=== PATIENT | male | born 1940 | race Caucasian/White ===

== ENCOUNTER 2021-01-24 17:01 | Emergency (ER) | payer MEDICARE, BC ==
--- NOTE | 2021-01-24 19:31 | EDM.PDOC ---
ED HPI GENERAL MEDICAL PROBLEM - General Chief Complaint: Skin Complaint Stated Complaint: INFECTION Time Seen by Provider: 01/24/21 18:48 Source of Information: Reports: Patient, Family History Limitations: Reports: No Limitations - History of Present Illness INITIAL COMMENTS - FREE TEXT/NARRATIVE: 80 yo [place] 4 [place]. yesterday skin surrounding the wound became fire engine red and pain increased. He does have base line very edematous lower extremities. He is diabetic. He does take ceftin daily. He is afebrile and generally feeling well - Related Data Allergies Allergy/AdvReac Type Severity Reaction Status Date / Time erythromycin base Allergy Other Verified 01/24/21 18:43 [From Staticin] ethyl alcohol [From Staticin] Allergy Other Verified 01/24/21 18:43 Home Meds: Home Meds Alfuzosin [Uroxatral] 10 mg PO BID 01/24/21 [History] Cefuroxime [Ceftin] 500 mg PO BID 01/24/21 [History] Ezetimibe [Zetia] 10 mg PO DAILY 01/24/21 [History] Furosemide [Lasix] 20 mg PO BID 01/24/21 [History] Insulin Isophane NPH, Human [HumuLIN N] 50 units SQ BID 01/24/21 [History] Nebivolol [Bystolic] 5 mg PO DAILY 01/24/21 [History] Past Medical History HEENT History: Reports: Impaired Vision Cardiovascular History: Reports: High Cholesterol Musculoskeletal History: Reports: Osteoarthritis Psychiatric History: Reports: Anxiety, PTSD Endocrine/Metabolic History: Reports: Diabetes, Type II, Obesity/BMI 30+ - Past Surgical History Head Surgeries/Procedures: Reports: None HEENT Surgical History: Reports: Cataract Surgery Cardiovascular Surgical History: Reports: None Respiratory Surgical History: Reports: None Endocrine Surgical History: Reports: None Musculoskeletal Surgical History: Reports: Other (See Below) Dermatological Surgical History: Reports: None Social & Family History - Tobacco Use Tobacco Use Status *Q: Never Tobacco User Second Hand Smoke Exposure: No - Caffeine Use Caffeine Use: Reports: Soda - Recreational Drug Use Recreational Drug Use: No ED ROS GENERAL - Review of Systems Review Of Systems: See Below Constitutional: Denies: Fever, Chills, Fatigue Respiratory: Denies: Shortness of Breath, Wheezing Cardiovascular: Reports: Edema. Denies: Chest Pain GI/Abdominal: Denies: Abdominal Pain Skin: Reports: Wound ED EXAM, SKIN/RASH Exam: See Below Exam Limited By: No Limitations General Appearance: Alert, WD/WN, No Apparent Distress Respiratory/Chest: No Respiratory Distress, Lungs Clear Cardiovascular: Other (1+ pitting edema lower extremities) Skin: Other (abrasion to mann of right leg 20 cm crusted surrounding erythema and edema, very tender to light palpation) Course - Vital Signs Last Recorded V/S: Last Vital Signs Temp 36.5 C 01/24/21 18:50 Pulse 81 01/24/21 18:50 Resp 16 01/24/21 18:50 BP 167/78 H 01/24/21 18:50 Pulse Ox 96 01/24/21 18:50 Departure - Departure Time of Disposition: 19:28 Disposition: Home, Self-Care 01 Condition: Good Clinical Impression: Peripheral edema Cellulitis Qualifiers: Site of cellulitis: extremity Site of cellulitis of extremity: lower extremity Laterality: right Qualified Code(s): L03.115 - Cellulitis of right lower limb - Discharge Information *PRESCRIPTION DRUG MONITORING PROGRAM REVIEWED*: Not Applicable *COPY OF PRESCRIPTION DRUG MONITORING REPORT IN PATIENT MICK: Not Applicable Instructions: Cellulitis, Adult Referrals: PCP,None [Primary Care Provider] - Forms: ED Department Discharge Additional Instructions: BActrim DS twice daily for 10 days Lasix as directed wash with warm soapy water and pat dry no need to soak as this may be creating more inflammation Sepsis Event Note (ED) - Evaluation Sepsis Screening Result: No Definite Risk - Focused Exam Vital Signs: Vital Signs Temp Pulse Resp BP Pulse Ox 01/24/21 18:50 36.5 C 81 16 167/78 H 96 01/24/21 18:38 36.5 C 81 16 167/78 H 96
== END 2021-01-24 19:41 | disposition home or self-care (01) ==
LOC: JP.ED 17:01
DX: L03.115 Cellulitis of right lower limb (principal); R60.0 Localized edema; E11.9 Type 2 diabetes mellitus without complications; E66.9 Obesity, unspecified; Z68.43 Body mass index [BMI] 50.0-59.9, adult; Z88.1 Allergy status to other antibiotic agents; Z91.048 Other nonmedicinal substance allergy status; Z79.899 Other long term (current) drug therapy; Z79.4 Long term (current) use of insulin
CPT/HCPCS: 99283

== ENCOUNTER 2021-06-15 17:40 | Emergency (ER) | payer MEDICARE, BC ==
[2021-06-15] MEDS ORDERED: HYDROmorphone 1 MG/ML Syringe IM ONE (18:29)
--- NOTE | 2021-06-15 18:31 | EDM.PDOC ---
ED HPI GENERAL MEDICAL PROBLEM - General Chief Complaint: Back Pain or Injury Stated Complaint: LOWER BACK PAIN Time Seen by Provider: 06/15/21 18:25 Source of Information: Reports: Patient, Family, RN Notes Reviewed History Limitations: Reports: No Limitations - History of Present Illness INITIAL COMMENTS - FREE TEXT/NARRATIVE: 81-year-old gentleman presents emergency department day complaint of low back pain, he does have a history of chronic back pain for which she takes oxycodone. However he is unsure what happened he just got out of the car sudden onset of back pain on the left side with pain shooting down into his left leg. The OxyContin does not provide any relief. No fevers no loss of bowel or bladder Left Lower Back Pain Score (Numeric/FACES): 9 - Related Data Allergies Allergy/AdvReac Type Severity Reaction Status Date / Time cyclobenzaprine Allergy Other Verified 06/15/21 18:09 [From Flexeril] erythromycin base Allergy Other Verified 06/15/21 18:08 [From Staticin] ethyl alcohol [From Staticin] Allergy Other Verified 06/15/21 18:08 Home Meds: Home Meds Alfuzosin [Uroxatral] 10 mg PO BID 01/24/21 [History] Cefuroxime [Ceftin] 500 mg PO BID 01/24/21 [History] Ezetimibe [Zetia] 10 mg PO DAILY 01/24/21 [History] Furosemide [Lasix] 40 mg PO BID 01/24/21 [History] Insulin Isophane NPH, Human [HumuLIN N] 50 units SQ BID 01/24/21 [History] Nebivolol [Bystolic] 5 mg PO DAILY 01/24/21 [History] Aspirin [Halfprin] 81 mg PO DAILY 06/15/21 [History] Insulin Glulisine [Apidra Solostar] 25 unit SQ TID 06/15/21 [History] Lactobacillus Acidophilus [Probiotic] 1 each PO BID 06/15/21 [History] Minocycline [Minocin] 100 mg PO BID 06/15/21 [History] PARoxetine [Paxil] 20 mg PO DAILY 06/15/21 [History] Pantoprazole [ProTONIX] 40 mg PO DAILY 06/15/21 [History] allopurinoL [Zyloprim] 300 mg PO DAILY 06/15/21 [History] oxyCODONE 10 mg PO Q4HR 06/15/21 [History] Past Medical History HEENT History: Reports: Impaired Vision Cardiovascular History: Reports: High Cholesterol, Other (See Below) Other Cardiovascular History: rapid heart rate Respiratory History: Reports: Asthma Musculoskeletal History: Reports: Back Pain, Chronic, Osteoarthritis Psychiatric History: Reports: Anxiety, PTSD Endocrine/Metabolic History: Reports: Diabetes, Type II, Obesity/BMI 30+ Dermatologic History: Reports: Other (See Below) Other Dermatologic History: skin discoloration - Infectious Disease History Infectious Disease History: Reports: Chicken Pox, Influenza, Measles - Past Surgical History Head Surgeries/Procedures: Reports: None HEENT Surgical History: Reports: Cataract Surgery Cardiovascular Surgical History: Reports: None Respiratory Surgical History: Reports: None Endocrine Surgical History: Reports: None Musculoskeletal Surgical History: Reports: Other (See Below) Dermatological Surgical History: Reports: None Social & Family History - Tobacco Use Tobacco Use Status *Q: Never Tobacco User - Caffeine Use Caffeine Use: Reports: Soda - Recreational Drug Use Recreational Drug Use: No ED ROS GENERAL - Review of Systems Review Of Systems: See Below Constitutional: Reports: No Symptoms Respiratory: Reports: No Symptoms Cardiovascular: Reports: No Symptoms GI/Abdominal: Reports: No Symptoms Musculoskeletal: Reports: Back Pain ED EXAM,LOWER BACK PAIN/INJURY - Physical Exam Exam: See Below Exam Limited By: No Limitations General Appearance: Alert, WD/WN, No Apparent Distress Respiratory/Chest: No Respiratory Distress Back Exam: Normal Inspection, Decreased Range of Motion, Muscle Spasm, Paraspinal Tenderness. No: CVA Tenderness (R), CVA Tenderness (L) Course - Vital Signs Last Recorded V/S: Last Vital Signs Temp 97.9 F 06/15/21 18:07 Pulse 83 06/15/21 18:07 Resp 16 06/15/21 18:07 BP 149/70 H 06/15/21 18:07 Pulse Ox 94 L 06/15/21 18:07 - Orders/Labs/Meds Meds: Medications Discontinued Medications Generic Name Dose Route Start Last Admin Trade Name Freq PRN Reason Stop Dose Admin Hydromorphone HCl 1 mg 06/15/21 18:29 06/15/21 18:51 Hydromorphone 1 Mg/Ml Syringe IM 06/15/21 18:30 1 mg ONETIME ONE Administration Departure - Departure Time of Disposition: 20:12 Disposition: Home, Self-Care 01 Condition: Fair Clinical Impression: Low back pain Qualifiers: Chronicity: unspecified Back pain laterality: left Sciatica presence: without sciatica Qualified Code(s): M54.50 - Low back pain, unspecified - Discharge Information Instructions: Managing Chronic Back Pain Referrals: Mainor Odom MD [Primary Care Provider] - Forms: ED Department Discharge Additional Instructions: Try the prednisone for the next 5 days, restart your oxycodone in the morning, keep your follow-up appointment with your primary care call return to the emergency department worsening of symptoms Sepsis Event Note (ED) - Evaluation Sepsis Screening Result: No Definite Risk - Focused Exam Vital Signs: Vital Signs Temp Pulse Resp BP Pulse Ox 06/15/21 18:07 97.9 F 83 16 149/70 H 94 L 06/15/21 17:54 97.9 F 83 16 149/70 H 94 L - Assessment/Plan Plan: Assessment Acuity = acute on chronic Site and laterality = low back pain Etiology = unknown Manifestations = none Location of injury = Home Lab values = none Plan Good improvement 1 mg Dilaudid he does have an allergy to Flexeril, he takes oxycodone at home plan is to try prednisone 20 mg once a day for 5 days in combination with his oxycodone I did personal counselor him about his blood sugars he does have follow-up appoint with his primary care within the next week This note was dictated using [employer] voice recognition software please call with any questions on syntax or grammar.
== END 2021-06-15 20:50 | disposition home or self-care (01) ==
LOC: JP.ED 17:40
DX: M54.50 Low back pain, unspecified (principal); J45.909 Unspecified asthma, uncomplicated; M19.90 Unspecified osteoarthritis, unspecified site; E11.9 Type 2 diabetes mellitus without complications; E66.9 Obesity, unspecified; Z68.42 Body mass index [BMI] 45.0-49.9, adult; Z88.8 Allergy status to other drugs, medicaments and biological substances; Z88.1 Allergy status to other antibiotic agents; Z79.82 Long term (current) use of aspirin; Z79.4 Long term (current) use of insulin; Z79.899 Other long term (current) drug therapy
CPT/HCPCS: 96372; 99283; J1170